=== PATIENT | female | born 1980 | race Caucasian/White ===

== ENCOUNTER 2016-09-22 11:01 | Emergency (ER) ==
[2016-09-22 11:15] VITALS: BP 121/79
[2016-09-22 11:31] LABS: MANUAL DIFF NEEDED? NO
[2016-09-22 11:32] LABS: BASO% 0.1 % (0.0-0.8); EOS# 0.23 X1000 (0.0-0.7); EOS% 2.9 % (0.0-10.0); HEMATOCRIT 40.3 % (37.0-47.0); HEMOGLOBIN 13.9 g/dL (12.0-16.0); IMM GRAN# 0.02 X1000 (0.0-0.04); IMM GRAN% 0.2 % (0.0-0.5); LYMPH# 2.07 X1000 (1.2-3.4); LYMPH% 25.8 % (20.5-51.1); MCH 32.3 PG (27-31); MCHC 34.5 g/dL (33-37); MCV 93.7 FL (81-99); MONO# 0.44 X1000 (0.11-0.59); MONO% 5.5 % (1.7-9.3); MPV 10.4 FL (7.4-10.4); NEUT% 65.5 % (42.2-75.2); PLT 289 X1000 (130-400)
[2016-09-22 12:02] LABS: AGAP 11; ALBUMIN 4.3 g/dL (3.5-5.0); ALKALINE PHOSPHATASE 75 U/L (32-104); BUN 9 mg/dL (8-22); CALCIUM 9.5 mg/dL (8.8-10.2); CHLORIDE 99 mmol/L (98-107); COSMO 268; GOT 26 U/L (10-30); GPT 17 U/L (10-36); POTASSIUM 3.1 mmol/L (3.5-5.1); SODIUM 135 mmol/L (136-145); TCO2 26 mmol/L (25-35); TOTAL PROTEIN 7.2 g/dL (6.3-8.3)
--- NOTE | 2016-09-22 12:55 | PROVIDER DOCUMENTATION ---
HPI-General Adult <Shayna Awad - Last Filed: 09/22/16 12:55> - General Source: patient - History of Present Illness -Gen Adult Nature of Presenting Problems: 36 yo female presents to ER with c/o rash and burning pain to left foot that is on and off the past 2 months. She denies any injury or specific outbreak to anything. Location of Pain/Injury: reports: lower extremity (left foot) Pain Radiation: reports: no radiation Quality of Pain: reports: burning Severity: reports: mild Onset/Duration: reports: other (2 weeks) Timing: reports: still present, intermittent Context/Activities at Onset: reports: none Modifying Factors: improves with: nothing Associated Symptoms: reports: denies symptoms Similar Symptoms Previously?: Yes Recently seen or treated by another doctor?: No <Sophia Lucero - Last Filed: 09/22/16 16:37> - General Chief Complaint: Extremity Pain Stated Complaint: EXTREMITY PAIN Time Seen by Provider: 09/22/16 12:50 Allergies/Adverse Reactions: Patient Allergies Allergy/AdvReac Type Severity Reaction Status Date / Time aspirin Allergy Unknown Verified 08/26/16 22:45 Penicillins Allergy Unknown Verified 08/26/16 22:45 Home Medications: Home Medication List Medication Instructions Recorded Confirmed Last Taken Type Acetaminophen with Codeine 1 each PO Q6H PRN PRN #8 tablet 09/22/16 Unknown Rx [Tylenol with Codeine #3] Prednisone 20 mg PO DAILY #10 tablet 09/22/16 Unknown Rx Review of Systems - Adult - REVIEW OF SYSTEMS - ADULT Constitutional: reports: no symptoms reported Eyes: reports: no symptoms reported Ears, Nose, Mouth & Throat: reports: no symptoms reported Cardiovascular: reports: no symptoms reported Respiratory: reports: no symptoms reported Gastrointestinal: reports: no symptoms reported Genitourinary: reports: no symptoms reported Musculoskeletal: reports: no symptoms reported Integumentary: reports: see HPI, rash Neurological: reports: no symptoms reported Psychiatric: reports: no symptoms reported Endocrine: reports: no symptoms reported Hematologic/Lymphatic: reports: no symptoms reported Allergic/Immunologic: reports: no symptoms reported All Other Systems: Reviewed and Negative <Sophia Lucero - Last Filed: 09/22/16 16:37> Past History - Adult - PAST MEDICAL HISTORY-ADULT Review of Records: reports: Nursing Assessment Review, Medications Reviewed Major Childhood Illnesses: reports: denies history - PRIOR SURGERIES/PROCEDURES Surgical/Procedure History: reports: hysterectomy - IMMUNIZATION STATUS Childhood Immunizations: See Nurse Assessment Flu Vaccine: See Nurse Assessment <Shayna Awad - Last Filed: 09/22/16 12:55> - PAST MEDICAL HISTORY-ADULT Review of Records: reports: Old Records Reviewed, Nursing Assessment Review, Medications Reviewed, Social history reviewed & non-contributory. Neurological: reports: headaches/migraines - PRIOR SURGERIES/PROCEDURES Surgical/Procedure History: reports: hysterectomy - IMMUNIZATION STATUS Childhood Immunizations: See Nurse Assessment Flu Vaccine: See Nurse Assessment - SOCIAL HISTORY Smoking: cigarettes, greater than 1 pack/day (1 ppd) Provider spent 3-5 mins advising pt. on dangers of tobacco.: Discussed manners to quit use, and f/u contacts for add'l counseling. Substance Use: none/never, denies Alcohol Use Frequency: never Living Situation: family <[email or web address]. - Last Filed: 09/22/16 16:37> Physical Exam-General - PHYSICAL EXAM-ADULT Initial Vital Signs Reviewed: Yes - CONSTITUTIONAL General Appearance: appears well, alert, no apparent distress - EYES Eyes: PERRL/EOMI - HEAD, EARS, NOSE, MOUTH & THROAT HENMT: normocephalic/atraumatic - RESPIRATORY Respiratory: no respiratory distress - MUSCULOSKELETAL Extremity: erythema (rash), tenderness (all over) - SKIN Integumentary: erythema, rash - NEUROLOGIC Neurologic: grossly normal - PSYCHIATRIC Psych/Mental Status: normal mood/affect, normal thought content, normal thought process, oriented x 3 <[email or web address]. - Last Filed: 09/22/16 16:37> Progress - PLAN OF CARE/RESULTS Progress/Plan/Lab Results: 1300-Discussed dx/tx/discharge and follow up with a exercise teacher with patient and family; they verbalized understanding. Laboratory Tests 09/22/16 09/22/16 11:25 11:25 WBC 8.03 RBC 4.30 Hgb 13.9 Hct 40.3 MCV 93.7 MCH 32.3 H MCHC 34.5 RDW Std Deviation 12.0 Plt Count 289 MPV 10.4 Immature Gran % (Auto) 0.2 Neut % (Auto) 65.5 Lymph % (Auto) 25.8 [place] % (Auto) 5.5 Eos % (Auto) 2.9 Baso % (Auto) 0.1 Immature Gran # (Auto) 0.02 Neut # (Auto) 5.26 Lymph # (Auto) 2.07 [place] # (Auto) 0.44 Eos # (Auto) 0.23 Baso # (Auto) 0.01 Sodium 135 L Potassium 3.1 L Chloride 99 Carbon Dioxide 26 Anion Gap 11 BUN 9 Creatinine 0.7 Estimated GFR/1.73 m2 > 60 BUN/Creatinine Ratio 13 Glucose 92 Calculated Osmolality 268 Calcium 9.5 Total Bilirubin 0.20 AST 26 ALT 17 Alkaline Phosphatase 75 Total Protein 7.2 Albumin 4.3 Globulin 3.0 Albumin/Globulin Ratio 1.0 Orders Category Date Time Status Finger Stick Blood Sugar (ED) DIRECTED Care 09/22/16 11:18 Active CBC WITH DIFF [HEME] Stat Lab 09/22/16 11:25 Completed CMP [COMPREHENSIVE METABOLIC PANEL] [CHEM] Stat Lab 09/22/16 11:25 Completed Acetaminophen with Codeine [Tylenol with Codeine #3] Med 09/22/16 13:05 Discontinued 1 each PO NOW ONE Potassium Chloride E.r. [Klor-Con] Med 09/22/16 13:08 Discontinued 40 meq PO NOW ONE Vital Signs - 24 hr 09/22/16 11:11 Temperature 98 F Pulse Rate 95 H Respiratory 18 Rate Blood Pressure 121/79 O2 Sat by Pulse 98 Oximetry <Sophia Lucero - Last Filed: 09/22/16 16:37> Departure <Shayna Awad - Last Filed: 09/22/16 12:55> - Departure Time of Disposition Order: 13:09 Certified Medical Emergency: Emergent <Sophia Lucero - Last Filed: 09/22/16 16:37> - Departure DIAGNOSIS: Rash, Rash of unknown cause, Hypokalemia Disposition: HOME 01 Condition: Good Additional Instructions: Follow up with exercise teacher. Take medications as prescribed. Apply cool compresses to area. Take a multivitamin ED Follow Up Instructions: You have been treated by a care provider in the Emergency Department. These instructions are being provided to you so you can have an understanding of how to care for yourself upon discharge. Upon discharge from the Emergency Department, you are responsible for making arrangements for follow-up care by a physician of your choice. Take all prescribed medications as directed. Return to the Emergency Department immediately for any new or worsening symptoms. You may call the Physician Referral phone number at [phone] to obtain a list of Physicians who are taking new patients. Prescriptions: Prednisone 20 mg PO DAILY #10 tablet Acetaminophen with Codeine [Tylenol with Codeine #3] 1 each PO Q6H PRN PRN #8 tablet PRN Reason: Pain Referrals: None,PCP [Primary Care Provider] - Corinna Retana MD [STAFF PHYSICIAN] - Forms: Return to School/Parent Work Instructions: Acetaminophen; Hydrocodone tablets or capsules, Rash, Hypokalemia , Prednisone tablets Attestation - Scribe Verification/Attestation Scribe:: Shayna Awad Scribe documention review:: This chart was documented by a scribe and accurately reflects the service the provider performed and the decisions made by the provider. <Shayna Awad - Last Filed: 09/22/16 12:55> - Physician/ CASSIUS Attestation Patient care was provided by Advanced Practice Provider:: Yes Advanced Practice Provider:: Sophia Lucero Advanced Practice Provider documentation review:: The Mid-level provider documentation, treatment plan and medical decision making was reviewed by the physician who agrees with all treatment and medical decision making by the [facility]. <Sophia Lucero - Last Filed: 09/22/16 16:37> Physician Attestation - Physician Attestation I, the provider, attest to the following statement:: Sophia Lucero Physician documentation Attestation:: This documentation recorded by the scribe accurately reflects the service I personally performed and the decisions made by me. <Sophia Lucero - Last Filed: 09/22/16 16:37>
[2016-09-22] MEDS ORDERED: TYLENOL WITH CODEINE #3 PO ONE (13:05)
[2016-09-22] MEDS ORDERED: KLOR-CON PO ONE (13:08)
== END 2016-09-22 13:32 | disposition home or self-care (01) ==
LOC: P.ED 11:01
DX: R21 Rash and other nonspecific skin eruption (principal); E87.6 Hypokalemia; M79.672 Pain in left foot; F17.210 Nicotine dependence, cigarettes, uncomplicated; Z71.6 Tobacco abuse counseling
CPT/HCPCS: 80053; 82948; 85025; 99283

== ENCOUNTER 2016-09-24 11:45 | Emergency (ER) ==
[2016-09-24 13:20] VITALS: BP 127/82
--- NOTE | 2016-09-24 13:46 | PROVIDER DOCUMENTATION ---
HPI-EENT General - General Chief Complaint: Mouth Pain Stated Complaint: TOOTHACHE Time Seen by Provider: 09/24/16 13:45 Source: patient Allergies/Adverse Reactions: Patient Allergies Allergy/AdvReac Type Severity Reaction Status Date / Time aspirin Allergy Unknown Verified 09/24/16 12:18 Penicillins Allergy Unknown Verified 09/24/16 12:18 Home Medications: Home Medication List Medication Instructions Recorded Confirmed Last Taken Type Acetaminophen with Codeine 1 each PO Q6H PRN PRN #8 tablet 09/22/16 Unknown Rx [Tylenol with Codeine #3] Prednisone 20 mg PO DAILY #10 tablet 09/22/16 Unknown Rx Clindamycin [Cleocin] 150 mg PO Q6HR #30 capsule 09/24/16 Unknown Rx Diphenhyramine/Al&mg Oh/Lido [Mbx 15 ml MT 4XDAY PRN PRN #1 bottle 09/24/16 Unknown Rx Solution] Sulfamethoxazole/Trimethoprim 1 each PO BID #14 tablet 09/24/16 Unknown Rx [Bactrim Ds Tablet] - History of Present Illness-EENT General Nature of Presenting Problem: 36 y/o WF c/o mouth pain/toothache x 3 days. Pt states that she was seen here 2 days ago for it, and has been using tylenol #3, but pain persists. States lesion on buccal aspect of L cheek. States hx of tooth decay. Denies any other sxs. Review of Systems - Adult - REVIEW OF SYSTEMS - ADULT Constitutional: reports: no symptoms reported. denies: chills, fever Eyes: reports: no symptoms reported. denies: blurred vision, double vision Ears, Nose, Mouth & Throat: reports: see HPI, mouth/dental pain. denies: ear pain, nose pain Cardiovascular: reports: no symptoms reported. denies: chest pain, palpitations Respiratory: reports: no symptoms reported. denies: dyspnea on exertion, shortness of breath Gastrointestinal: reports: no symptoms reported. denies: abdominal pain, nausea , vomiting Genitourinary: reports: no symptoms reported. denies: dysuria, frequency Musculoskeletal: reports: no symptoms reported. denies: joint pain, joint swelling Integumentary: reports: no symptoms reported. denies: nail changes, rash Neurological: reports: no symptoms reported. denies: numbness, paresthesia Psychiatric: reports: no symptoms reported Endocrine: reports: no symptoms reported. denies: cold intolerance, heat intolerance Hematologic/Lymphatic: reports: no symptoms reported. denies: easy bruising, prolonged bleeding Allergic/Immunologic: reports: no symptoms reported All Other Systems: Reviewed and Negative Past History - Adult - PAST MEDICAL HISTORY-ADULT Review of Records: reports: Nursing Assessment Review, Medications Reviewed Major Childhood Illnesses: reports: denies history Neurological: reports: headaches/migraines - PRIOR SURGERIES/PROCEDURES Surgical/Procedure History: reports: hysterectomy - IMMUNIZATION STATUS Childhood Immunizations: See Nurse Assessment Flu Vaccine: See Nurse Assessment - SOCIAL HISTORY Smoking: cigarettes, less than 1 pack/day Provider spent 3-5 mins advising pt. on dangers of tobacco.: Discussed manners to quit use, and f/u contacts for add'l counseling. Physical Exam- EENT - Physical Exam EENT Initial Vital Signs Reviewed: Yes General Appearance: alert, mild distress Eye Exam: bilateral eye: normal inspection Ear Exam: bilateral ear: auricle normal Nasal Exam: normal inspection Throat Exam: pharynx normal, dental tenderness (with decay throughout mouth), other (colón lesion with redness surrounding noted to buccal aspect of L cheek c/ w aphthuous ulcer.). negative: tonsillar exudate Neck: supple, normal inspection. negative: lymphadenopathy Respiratory: no respiratory distress Lymphatic: no adenopathy Back Exam: normal inspection Extremity: normal gait Integumentary: normal color, normal turgor, warm/dry Neurologic: negative: aphasia Psych/Mental Status: normal mood/affect, normal thought content, normal thought process, oriented x 3 Departure - Departure Time of Disposition Order: 13:47 DIAGNOSIS: Aphthous ulcer Disposition: HOME 01 Certified Medical Emergency: Emergent Condition: Stable Additional Instructions: Follow up with specialist if symptoms persist. Use medications as directed. ED Follow Up Instructions: You have been treated by a care provider in the Emergency Department. These instructions are being provided to you so you can have an understanding of how to care for yourself upon discharge. Upon discharge from the Emergency Department, you are responsible for making arrangements for follow-up care by a physician of your choice. Take all prescribed medications as directed. Return to the Emergency Department immediately for any new or worsening symptoms. You may call the Physician Referral phone number at [phone] to obtain a list of Physicians who are taking new patients. Prescriptions: Sulfamethoxazole/Trimethoprim [Bactrim Ds Tablet] 1 each PO BID #14 tablet Clindamycin [Cleocin] 150 mg PO Q6HR #30 capsule Diphenhyramine/Al&mg Oh/Lido [Mbx Solution] 15 ml MT 4XDAY PRN PRN #1 bottle PRN Reason: Pain Referrals: None,PCP [Primary Care Provider] - Jennifer Guzmán MD [STAFF PHYSICIAN] - Attestation - Physician/ CASSIUS Attestation Patient care was provided by Advanced Practice Provider:: Yes Advanced Practice Provider:: Maria Fernanda Arroyo Advanced Practice Provider documentation review:: The Mid-level provider documentation, treatment plan and medical decision making was reviewed by the physician who agrees with all treatment and medical decision making by the [facility].
== END 2016-09-24 13:58 | disposition home or self-care (01) ==
LOC: P.ED 11:45
DX: K12.0 Recurrent oral aphthae (principal); K08.89 Other specified disorders of teeth and supporting structures; K02.9 Dental caries, unspecified; F17.210 Nicotine dependence, cigarettes, uncomplicated; Z71.6 Tobacco abuse counseling
CPT/HCPCS: 99282